=== PATIENT | male | born 1990 | race Caucasian/White ===

== ENCOUNTER 2021-03-04 12:58 | Outpatient (CLI) | payer BC ==
[2021-03-05 01:00] LABS: SARS-CoV-2 PCR by NAA Not Detected (NotDetected)
== END 2021-03-04 12:59 | disposition home or self-care (01) ==
LOC: LABBT 12:58
PROVIDERS: ATTEND Student in an Organized Health Care Education/Training Program
DX: Z01.812 Encounter for preprocedural laboratory examination (principal); J34.2 Deviated nasal septum; R09.81 Nasal congestion; J34.3 Hypertrophy of nasal turbinates; Z20.822 Contact with and (suspected) exposure to COVID-19
CPT/HCPCS: 87635; U0003; U0005

== ENCOUNTER 2021-03-08 07:02 | Day surgery (SDC) | payer BC ==
[2021-03-04 11:07] VITALS: BMI 22.8
[2021-03-08] MEDS ORDERED: Fentanyl 250 MCG/5 ML VIAL ONE (07:21)
[2021-03-08] MEDS ORDERED: Lidocaine 4% Topical Sol 50 ML BOT ONE (07:21)
[2021-03-08] MEDS ORDERED: AFRIN NASAL MIST 15 ML BOT ONE ×2 (07:23→07:27)
[2021-03-08] MEDS ORDERED: Lidocaine 1% w/Epinephrine 1:100K 20 ML VIAL ONE (07:27)
[2021-03-08] MEDS ORDERED: Bacitracin Zinc Ointment 30 gm TUBE ONE (07:27)
[2021-03-08] MEDS ORDERED: Propofol 1,000 MG/100 ML VIAL IV ONE (07:43)
[2021-03-08] MEDS ORDERED: Acetaminophen 500 MG TAB ONE ×2 (07:53)
[2021-03-08] MEDS ORDERED: Midazolam HCl 2 mg/2 ml Vial ONE (07:53)
[2021-03-08] MEDS ORDERED: Dexamethasone 20 MG/5 ML VIAL ONE (08:05)
[2021-03-08] MEDS ORDERED: Ketorolac Tromethamine 30 MG/ML VIAL ONE (08:05)
[2021-03-08] MEDS ORDERED: Ondansetron PF 4 MG/2 ML Vial ONE (08:05)
[2021-03-08] MEDS ORDERED: Rocuronium Bromide 10 MG/ML (10ML VIAL) ONE (08:05)
[2021-03-08] MEDS ORDERED: Lidocaine 1% PF 5 ML VIAL ONE (08:05)
[2021-03-08] MEDS ORDERED: PROPOFOL 200 MG/20 ML VIAL ONE (08:05)
[2021-03-08] MEDS ORDERED: Fentanyl 100 MCG/2 ML VIAL ONE (10:30)
[2021-03-08] MEDS ORDERED: Sodium Chloride 0.9% 10 ML ONE ×2 (11:11→12:30)
[2021-03-08] MEDS ORDERED: HYDROcodone/Acetaminophen 5/325 mg Tablet ONE (11:11)
[2021-03-08] MEDS ORDERED: Promethazine HCl 25 MG/ML VIAL ONE (11:11)
[2021-03-08] MEDS ORDERED: Morphine 2 MG/ML VIAL ONE (12:28)
== END 2021-03-08 13:35 | disposition home or self-care (01) ==
LOC: SDC 07:02
PROVIDERS: ATTEND Student in an Organized Health Care Education/Training Program
PROC: 09QK0ZZ Repair Nasal Mucosa and Soft Tissue, Open Approach (ICD-10-PCS; principal; 2021-03-08)
PROC: 09TL7ZZ Resection of Nasal Turbinate, Via Natural or Artificial Opening (ICD-10-PCS; principal; 2021-03-08)
PROC: 09SM0ZZ Reposition Nasal Septum, Open Approach (ICD-10-PCS; principal; 2021-03-08)
DX: J34.2 Deviated nasal septum (principal); J34.3 Hypertrophy of nasal turbinates; J34.89 Other specified disorders of nose and nasal sinuses; H92.02 Otalgia, left ear; M26.622 Arthralgia of left temporomandibular joint; Z87.891 Personal history of nicotine dependence
CPT/HCPCS: J1100; J1885; J2250; J2270; J2405; J2550; J2704; J3010